=== PATIENT | female | born 1950 | race Caucasian/White ===

== ENCOUNTER → 2016-11-07 | Outpatient (CLI) | payer OTHER | LOC: FIMAGING 12:24 | PROVIDERS: ATTEND Obstetrics & Gynecology | DX: N95.0 Postmenopausal bleeding (principal) ==

== ENCOUNTER 2016-12-23 10:53 | Day surgery (SDC) | payer OTHER ==
[2016-12-23] MEDS ORDERED: SILVER NITRATE APPLICATOR 1 APPL TP ONE ×2 (11:27→13:54)
[2016-12-23] MEDS ORDERED: LR 1,000 ML IV ONE (11:37)
[2016-12-23] MEDS ORDERED: MIDAZOLAM 2 MG/2 ML VIAL ONE (12:28)
[2016-12-23] MEDS ORDERED: fentaNYL 100 MCG/2 ML INJ ONE ×3 (12:35→14:26)
[2016-12-23] MEDS ORDERED: PROPOFOL 200 MG/20 ML VIAL ONE (12:35)
[2016-12-23] MEDS ORDERED: ONDANSETRON 4 MG/2 ML VIAL ONE (12:36)
[2016-12-23] MEDS ORDERED: KETOROLAC 30 MG/1 ML SDV ONE (12:36)
[2016-12-23] MEDS ORDERED: LIDOCAINE 2% 5 ML SDV ONE (12:36)
[2016-12-23] MEDS ORDERED: DEXAMETHASONE 4 MG/ML VIAL ONE (12:36)
[2016-12-23 12:45] LABS: % IMMATURE GRANULYOCYTES 0.4 % (0.0-1.1); ABSOLUTE IMMATURE GRANULOCYTES 0.02 10^3/uL (0.00-0.10); ADD DIFF? NO; ADD MORPH? NO; ADD SCAN? NO; ATYPICAL LYMPHOCYTE FLAG 10 (0-99); FRAGMENT RBC FLAG 0 (0-99); HEMATOCRIT 40.1 % (38.0-47.0); HEMOGLOBIN 13.4 g/dL (12.6-16.3); LEFT SHIFT FLG 0 (0-99); LIPEMIA HEMOLYSIS FLAG 80 (0-99); MEAN CELL HEMOGLOBIN 29.9 pg (27.9-34.1); MEAN CELL HEMOGLOBIN CONCENTR. 33.4 g/dL (32.4-36.7); MEAN CELL VOLUME 89.5 fL (81.5-99.8); MEAN PLATELET VOLUME 9.7 fL (8.7-11.7); PLATELET CLUMPS FLAG 0 (0-99); PLATELET COUNT 272 10^3/uL (150-400); RED BLOOD CELL COUNT 4.48 10^6/uL (4.18-5.33); RED CELL DISTRIBUTION WIDTH 13.9 % (11.5-15.2)
[2016-12-23 13:19] LABS: ANION GAP 9 mEq/L (8-16); CALCIUM 9.2 mg/dL (8.5-10.4); CARBON DIOXIDE 23 mEq/l (22-31); CHLORIDE 106 mEq/L (97-110); CREATININE 0.6 mg/dL (0.6-1.0); GLOMERULAR FILTRATION RATE > 60; GLUCOSE 84 mg/dL (70-100); POTASSIUM 4.6 mEq/L (3.5-5.2); SODIUM 138 mEq/L (134-144)
[2016-12-23] MEDS ORDERED: LABETALOL HCL 5 MG/ML 20 ML MDV ONE (13:31)
[2016-12-23] MEDS ORDERED: ACETAMINOPHEN 500 MG TAB ONE (15:43)
--- NOTE | 2017-01-07 14:47 | GOP ---
[f rep st] OPERATIVE REPORT DATE OF OPERATION: 12/23/2016 SURGEON: Jessica Pittman MD SHAFTING WORKER: None. ANESTHESIA: General. PREOPERATIVE DIAGNOSIS: Menopausal bleeding and endometrial thickening. POSTOPERATIVE DIAGNOSIS: 1. Menopausal bleeding and endometrial thickening. 2. Endometrial polyps. PROCEDURE PERFORMED: FINDINGS: Her intrauterine cavity was visualized clearly, and 2 polyps were visualized at the right cornua. No other masses or lesions were seen. SPECIMENS: Endometrial curettings and endometrial polyps. ESTIMATED BLOOD LOSS: Less than 10 cc. INDICATIONS: Patient is a 66-year-old female with an endometrial mass found on pelvic ultrasound sh owing a 9 mm polyp at the right cornua with an endometrial biopsy that showed superficial epithelium only. The patient had a history of hyperplasia in the past, and she agreed to proceed with further surgical evaluation with a dilation, curettage, and hysteroscopy. DESCRIPTION OF PROCEDURE: Patient was taken to the operating room where general anesthesia was foun d to be adequate. Patient was prepared and draped in normal sterile fashion in the dorsal lithotomy position. A weighted speculum was placed in the patient's vagina. A Prince retractor used to visual ize the cervix clearly. A single-toothed tenaculum was used to grasp the anterior lip of the cervix , and the cervix was gently dilated up to 5.5 mm using Hegar dilators. A 0-degree Truclear 5 mm hys teroscope was then placed into the cervix and advanced into the uterine cavity easily with no compli cations. The uterine cavity was visualized clearly with 2 polyps noted at the right cornua. The po lyps were removed with a 2.9 morcellator under direct visualization with no immediate complications. The endometrial lining was sampled under direct visualization with the morcellator, and then the h ysteroscope was removed. A sharp curettage was performed, and all endometrial curettings were sent to Pathology with the tissue removed via the hysteroscope. The tenaculum was then removed, and hemo stasis was obtained with silver nitrate. All instruments were removed from the patient's vagina. All sponge, lap, and needle counts correct x2. Patient was transferred to PACU in stable and good c ondition. COMPLICATIONS: None. IV FLUIDS: 1000 cc. URINE OUTPUT: None. /[id number]/MODL
== END 2016-12-23 15:55 | disposition home or self-care (01) ==
LOC: FSGY 10:53
PROVIDERS: ATTEND Obstetrics & Gynecology
PROC: 0UB98ZX Excision of Uterus, Via Natural or Artificial Opening Endoscopic, Diagnostic (ICD-10-PCS; principal; 2016-12-23 12:30)
DX: N84.0 Polyp of corpus uteri (principal); E66.01 Morbid (severe) obesity due to excess calories; I10 Essential (primary) hypertension; E03.9 Hypothyroidism, unspecified; F41.8 Other specified anxiety disorders
CPT/HCPCS: 58558; C1782; J1100; J1885; J2250; J2405; J2704; J3010; J3490